=== PATIENT | female | born 1955 | race Caucasian/White ===

== ENCOUNTER 2018-02-22 12:43 | Inpatient (IN) | END 2018-02-23 18:59 | disposition home or self-care (01) | DRG 313 ==

== ENCOUNTER 2018-09-17 17:29 | Emergency (ER) | payer OTHER ==
[~2018-09-17] VITALS: Wt 75.3 kg
[~2018-09-17 17:29] MED LIST: ACET325T33 PO; ADMELOG SUBCUTANE; ASPI-831 PO; ATOR20TA38 PO; GABA300C16 PO; INSU100I33 SC; METO-335 PO; MTF1000T PO; QUIN10TA19 PO; SERT50TA6 PO; SITA100T11 PO; TOPI25TA PO; TRAZ-111 PO
--- NOTE | 2018-09-17 20:35 | ERD ---
ER Documentation Chief Complaint Chief Complaint GASCA, N/V HPI This is a 63-year-old female presented emergency department with complaints of headache, vomiting, palpitations. Stated that she had headache for about a week. Added that she has vomiting multiple times today with nonbilious nonbloody emesis. Also complains of palpitations last night. Stated that she had this same headache before and this is not the worst headache of her life. LMP: Reviewed. Denies that this is the worst headache of her life, head injury, loss of consciousness, neck pain, neck stiffness, throat pain, difficulty swallowing, difficulty breathing lying flat, shoulder pain, chest pain, back pain, abdominal pain, nausea, vomiting, constipation, diarrhea, urinary symptoms, or possibility being , loss of bowel and bladder control, trauma, injury, falls, difficulty walking due to pain, numbness or tingling sensation, calf p ain, recent travel, recent major surgery in the last 3 weeks, calf pain, recent long travel, recent exposure to any illness, recent antibiotic use in the last 3 months, fever, chills, seizures. Past medical history: Diabetes. Hypertension. Hyperlipidemia. Surgical history: Social: Denies smoking, use of alcoholic beverages, use of illegal drugs. ROS All systems reviewed and are negative except as per history of present illness. Medications Home Meds Active Scripts Ondansetron Hcl* (Zofran*) 4 Mg Tablet, 4 MG PO Q8H PRN for NAUSEA AND/OR VOMITING, #30 TAB Prov:TAMMY BRADY 09/17/18 Meclizine Hcl* (Antivert*) 12.5 Mg Tab, 12.5 MG PO Q6H PRN for DIZZINESS, #20 TAB Prov:PASILATAMMY HERRERA 09/17/18 Acetaminophen* (Tylophen*) 500 Mg Capsule, 1 CAP PO Q6H PRN for PAIN AND OR ELEVATED TEMP, #20 CAP Prov:PASILABANTAMMY 09/17/18 Topiramate* (Topamax*) 25 Mg Tablet, 25 MG PO BID for 30 Days, #30 TAB 1 Refill Prov:IVONNE VALEAR MD 02/23/18 Aspirin (Aspirin) 81 Mg Chew, 81 MG PO DAILY for 30 Days, #30 TAB Prov:IVONNE VALERA MD 02/23/18 Acetaminophen* (Tylenol*) 325 Mg Tablet, 650 MG PO Q6H PRN for PAIN LEVEL 1-3 OR FEVER for 1 Day, TAB Prov:IVONNE VALERA MD 02/23/18 Reported Medications Metoprolol Succinate* (Toprol XL*) 25 Mg Tab.sr.24h, 25 MG PO DAILY, #30 TAB 02/19/18 Gabapentin* (Gabapentin*) 300 Mg Capsule, 300 MG PO QHS, #60 CAP 02/19/18 Atorvastatin Calcium* (Atorvastatin Calcium*) 20 Mg Tablet, 20 MG PO QHS, #30 TAB 02/19/18 Sertraline Hcl* (Sertraline Hcl*) 50 Mg Tablet, 50 MG PO DAILY, #30 TAB 02/19/18 Trazodone Hcl* (Trazodone Hcl*) 50 Mg Tablet, 50 MG PO QHS, #30 TAB 02/19/18 Sitagliptin* (Januvia*) 100 Mg Tablet, 100 MG PO DAILY, #30 TAB 02/19/18 Quinapril Hcl (Quinapril Hcl) 10 Mg Tablet, 10 MG PO DAILY, #30 TAB 02/19/18 Metformin* (Glucophage*) 1,000 Mg Tablet, 1000 MG PO BID, #60 TAB 02/19/18 Insulin Glargine,Hum.rec.anlog (Basaglar Kwikpen U-100) 100 Unit/1 Ml Insuln.pen, 40 UNIT SC QPM, EA 02/19/18 [Admelog] No Conflict Check, 2-4 UNITS SUBCUTANE AC BREAKFAST 02/19/18 Allergies Allergies: Coded Allergies: No Known Allergy (Unverified , 02/19/18) PMhx/Soc History of Surgery: Yes () Anesthesia Reaction: No Hx Neurological Disorder: No Hx Respiratory Disorders: No Hx Cardiac Disorders: Yes (HTN) Hx Psychiatric Problems: No Hx Miscellaneous Medical Probl: No Hx Alcohol Use: No Hx Substance Use: No Hx Tobacco Use: No Smoking Status: Never smoker Physical Exam Vitals Vital Signs Date Temp Pulse Resp B/P (MAP) Pulse Ox O2 O2 Flow FiO2 Time Delivery Rate 09/18/18 97.8 68 18 148/66 99 Room Air 00:20 (93) 09/17/18 97.7 76 168/73 22:57 (104) 163/74 (103) 138/65 (89) 09/17/18 97.6 70 20 164/65 97 18:00 (98) Physical Exam Const: No acute distress Head: Atraumatic Eyes: Normal Conjunctiva. ENT: Normal External Ears, Nose and Mouth. Bilateral ears: TMs are not erythematous with no bleeding. No discharge. No hearing loss. No mastoid tenderness. Nose: Midline without deviation. No septal hematoma. There is frontal and maxillary sinus tenderness to palpation. Throat: Uvula is in midline and nondisplaced. Tonsils are +1 bilaterally without redness and without exudates. Tolerating secretions. Patent airway. Speaks full and clear sentences. Neck: Full range of motion. No meningismus. No nuchal rigidity. No signs of meningeal irritation. Resp: Clear to auscultation bilaterally. No accessory muscle use in breathing. Cardio: Regular rate and rhythm, no murmurs Abd: Soft, non tender, non distended. Normal bowel sounds. Negative Mcfarland sign. Negative Abdirahman sign (heel jar test). Negative psoas sign. Negative Rovsing sign. Able to jump 10 times without developing lower abdominal pain. No CVA tenderness. Ambulatory with steady gait and without pain to abdomen. Skin: No petechiae or rashes. Color appears normal for ethnicity. No skin tenting. No signs of severe dehydration. Back: No midline or flank tenderness Ext: No cyanosis, or edema Neur: Awake and alert. Romberg test is negative. No neurological deficits. Psych: Normal Mood and Affect Result Diagram: 09/17/18210509/17/182105 Results 24 hrs Laboratory Tests Test 09/17/18 21:06 09/17/18 21:07 White Blood Count 7.4 10^3/ul Red Blood Count 3.54 10^6/ul Hemoglobin 10.3 g/dl Hematocrit 29.5 % Mean Corpuscular Volume 83.3 fl Mean Corpuscular Hemoglobin 29.1 pg Mean Corpuscular Hemoglobin Concent 34.9 g/dl Red Cell Distribution Width 12.9 % Platelet Count 221 10^3/UL Mean Platelet Volume 9.8 fl Immature Granulocytes % 0.100 % Neutrophils % 67.5 % Lymphocytes % 24.3 % Monocytes % 6.9 % Eosinophils % 0.8 % Basophils % 0.4 % Nucleated Red Blood Cells % 0.0 /100WBC Immature Granulocytes # 0.010 10^3/ul Neutrophils # 5.0 10^3/ul Lymphocytes # 1.8 10^3/ul Monocytes # 0.5 10^3/ul Eosinophils # 0.1 10^3/ul Basophils # 0.0 10^3/ul Nucleated Red Blood Cells # 0.0 10^3/ul Prothrombin Time 13.3 Sec Prothrombin Time Ratio 1.0 INR International Normalized Ratio 1.00 Activated Partial Thromboplast Time 28.9 Sec Sodium Level 127 mmol/L Potassium Level 4.0 mmol/L Chloride Level 88 mmol/L Carbon Dioxide Level 27 mmol/L Anion Gap 12 Blood Urea Nitrogen 7 mg/dl Creatinine 0.56 mg/dl Est Glomerular Filtrat Rate mL/min > 60 mL/min Glucose Level 177 mg/dl Calcium Level 8.9 mg/dl Total Bilirubin 0.5 mg/dl Direct Bilirubin 0.00 mg/dl Indirect Bilirubin 0.5 mg/dl Aspartate Amino Transf (AST/SGOT) 24 IU/L Alanine Aminotransferase (ALT/SGPT) 21 IU/L Alkaline Phosphatase 55 IU/L Troponin I < 0.012 ng/ml Total Protein 7.5 g/dl Albumin 4.3 g/dl Globulin 3.20 g/dl Albumin/Globulin Ratio 1.34 Amylase Level 91 U/L Lipase 105 U/L Urine Color YELLOW Urine Clarity CLEAR Urine pH 7.0 Urine Specific [place] 1.018 Urine Ketones TRACE mg/dL Urine Nitrite NEGATIVE mg/dL Urine Bilirubin NEGATIVE mg/dL Urine Urobilinogen NEGATIVE mg/dL Urine Leukocyte Esterase NEGATIVE Mehrdad/ul Urine Microscopic RBC 0 /HPF Urine Microscopic WBC 0 /HPF Urine Hemoglobin NEGATIVE mg/dL Urine Glucose NEGATIVE mg/dL Urine Total Protein 1+ mg/dl Current Medications Medications Dose Sig/Jg Start Time Status Last (Trade) Ordered Route PRN Stop Time Admin Dose Reason Admin Ondansetron 4 mg ONCE STAT 09/17/18 DC 09/17/18 HCl (Zofran IV 20:49 09/17/18 21:12 Inj) 20:53 Famotidine 20 mg ONCE ONCE 09/17/18 DC 09/17/18 (Pepcid Iv) IV 21:00 09/17/18 21:12 21:01 Sodium 1,000 ml @ Q1H ONCE 09/17/18 DC 09/17/18 Chloride 1,000 mls/hr IV 22:00 09/17/18 23:10 22:59 Sodium 1,000 ml @ Q1H ONCE 09/17/18 DC 09/18/18 Chloride 1,000 mls/hr IV 23:00 09/17/18 00:10 23:59 Meclizine 12.5 mg ONCE ONCE 09/17/18 DC 09/17/18 HCl PO 23:00 09/17/18 23:16 (Antivert) 23:01 Procedures/MDM Diagnostic tests: EKG: Sinus rhythm. No STEMI. Read by supervising physician. Treatment: Saline lock. Normal saline IV bolus x2 L. Zofran. Pepcid. Antivert. Re-evaluation: Road test was done. Patient has steady gait. Romberg test negative. No neurological deficits. Stated that she feels much better this time and that they are ready to go home. Stated that they are comfortable to go home. Differential diagnosis I have low suspicion for stroke, subarachnoid hemorrhage, cerebral edema, acute microinfarction, acute coronary syndrome, pneumonia, severe dehydration, severe electrolyte imbalance. Final diagnosis: Hyponatremia. Dehydration. Prescription: Motrin. Omeprazole. Antivert. This case was discussed with my supervising physician, Dr. Mindi Stoll who agreed with my medical decision making. Follow-up with PCP in the next 24-48 hours. Follow-up with PCP in the next 3 to 5 days for recheck of blood works. Come back here in the emergency department for any new symptoms or any worsening symptoms. All questions and concerns were answered. Patient and family members verbalized understanding and agreed with plan of care. Hemodynamically stable on discharge. Departure Diagnosis: Primary Impression: Hyponatremia Additional Impressions: Dehydration Dizziness Condition: Stable Additional Instructions: Follow-up with PCP in the next 24-48 hours. Follow-up with PCP in the next 3 to 5 days for recheck of blood works. Come back here in the emergency department for any new symptoms or any worsening symptoms. TAMMY BRADY Sep 17, 2018 20:35
[2018-09-17] MEDS ORDERED: ONDANSETRON 4 MG INJ IV STA (20:49)
[2018-09-17] MEDS ORDERED: FAMOTIDINE 20 MG INJ IV ONE (21:00)
[2018-09-17] MEDS ORDERED: SOD CHLORIDE 0.9% 1,000 ML IV ONE ×2 (22:00→23:00)
[2018-09-17] MEDS ORDERED: MECL12.574 PO (22:45)
[2018-09-17] MEDS ORDERED: ONDA4TAB8 PO (22:45)
[2018-09-17] MEDS ORDERED: ACET500C5 PO (22:45)
[2018-09-17 22:57] VITALS: TEMP 97.7
[2018-09-17] MEDS ORDERED: MECLIZINE 12.5 MG TAB PO ONE (23:00)
[2018-09-18 00:20] VITALS: BP 148/66; PULSE 68; RESP 18
== END 2018-09-18 00:40 | disposition home or self-care (01) ==
LOC: FTE 17:29
DX: E87.1 Hypo-osmolality and hyponatremia (principal); E11.9 Type 2 diabetes mellitus without complications; I10 Essential (primary) hypertension; E86.0 Dehydration; R07.9 Chest pain, unspecified; Z79.4 Long term (current) use of insulin; Z79.82 Long term (current) use of aspirin
CPT/HCPCS: 71046; 80053; 81001; 82150; 83690; 84484; 85025; 85610; 85730; 87086; 93005; 96361; 96374; 96375; J2405; J7030; Z7502; Z7610